=== PATIENT | female | born 1970 | race Caucasian/White ===

== ENCOUNTER 2016-06-18 11:30 | Emergency (ER) | payer BC ==
--- NOTE | 2016-07-30 21:36 | ER ---
ADMIT: 06/18/2016 RM/LOC: ER [facility] MR#: [id number] [id number] [place]IC[place]O FREITAS [address] [place] [address] Emergency Room Report SEX: F AGE: 46 : 1970 DATE: 06/18/2016 A 46-year-old, who comes to the Emergency Department with complaint of a seizure. See T-sheet for remainder history and physical. Pertinent labs; had a normal CBC. A CT of the head was negative. Chest x-ray was negative. EKG was within normal limits. Prolactin level was 46, potassium 3.5. The patient was diagnosed with seizure and instructed to follow up with Neurology and primary doctor in 1-2 days. Patrick Villaseñor MD/ rukhsana JOB #: [id number] CC: Patrick Villaseñor MD, Attending Physician [facility] Physician, Family Physician
== END 2016-06-18 15:16 | disposition home or self-care (01) ==
LOC: EDBD 11:30 → ER 11:30
DX: R56.9 Unspecified convulsions (principal); Z88.0 Allergy status to penicillin; Z79.899 Other long term (current) drug therapy